=== PATIENT | female | born 1995 | race Caucasian/White ===

== ENCOUNTER 2017-08-13 09:39 | Emergency (ER) | payer OTHER ==
[2017-08-13] MEDS ORDERED: NYSTATIN/DEXAMETH/DIPHEN SUSP 120 ML PO ONE (10:09)
--- NOTE | 2017-08-13 11:09 | ER Document Report ---
ED ENT - General Chief Complaint: Sore Throat Stated Complaint: SORE THROAT,HEADACHE,LEFT EAR PAIN Time Seen by Provider: 08/13/17 09:53 Mode of Arrival: Ambulatory Information source: Patient Notes: Patient is a 21-year-old female who presents to the ER today for sore throat 3 days. Patient admits to a dry cough after the sore throat started that she thinks is just because of the irritation of the throat. Patient admits that over the past 24 hours the pain from the throat is radiating to the left ear. She denies any fever but admits to chills. She denies any runny nose, vomiting or diarrhea. TRAVEL OUTSIDE OF THE [place] IN LAST 30 DAYS: No - Related Data Allergies/Adverse Reactions: berries Allergy (Uncoded 08/13/17 09:41) Past Medical History - General Information source: Patient - Social History Smoking Status: Never Smoker Chew tobacco use (# tins/day): No Frequency of alcohol use: None Drug Abuse: None Family History: Reviewed & Not Pertinent Patient has suicidal ideation: No Patient has homicidal ideation: No Renal/ Medical History: Denies: Hx Peritoneal Dialysis Review of Systems - Review of Systems Constitutional: See HPI EENT: See HPI Cardiovascular: No symptoms reported Respiratory: See HPI Gastrointestinal: No symptoms reported Genitourinary: No symptoms reported Female Genitourinary: No symptoms reported Musculoskeletal: No symptoms reported Skin: No symptoms reported Hematologic/Lymphatic: No symptoms reported Neurological/Psychological: No symptoms reported Physical Exam - Vital signs Vitals: Temp Pulse Resp BP Pulse Ox 98.0 F 86 16 114/65 98 08/13/17 09:44 08/13/17 09:44 08/13/17 09:44 08/13/17 09:44 08/13/17 09:44 - Notes Notes: PHYSICAL EXAMINATION: General :mildly ill-appearing, but in no acute distress. HEAD: Atraumatic, normocephalic. EYES: Pupils equal round and reactive to light, extraocular movements intact, sclera anicteric, conjunctiva are normal. ENT: ear canals without erythema or foreign body, TMs pearly sparrow with good bony landmarks, nares patent, oropharynx erythematous with enlarged tonsils bilaterally without exudates. Moist mucous membranes. NECK: Normal range of motion, supple with bilateral cervical lymphadenopathy LUNGS: CTAB and equal. No wheezes rales or rhonchi. HEART: Regular rate and rhythm without murmurs EXTREMITIES: Normal range of motion, no pitting edema. No cyanosis. NEUROLOGICAL: Cranial nerves grossly intact. Normal sensory/motor exams. PSYCH: Normal mood, normal affect. SKIN: Warm, Dry, normal turgor, no rashes or lesions noted Course - Vital Signs Vital signs: Temp Pulse Resp BP Pulse Ox 98.0 F 88 17 102/59 L 98 08/13/17 11:15 08/13/17 11:15 08/13/17 11:15 08/13/17 11:15 08/13/17 11:15 Discharge - Discharge Clinical Impression: Sore throat Condition: Stable Disposition: HOME, SELF-CARE Additional Instructions: Return immediately for any new or worsening symptoms. Follow up with primary care provider, call tomorrow to make followup appointment. Prescriptions: Amoxicillin 500 mg PO BID #20 capsule Forms: Return to Work
[2017-08-13 11:15] VITALS: BP 102/59
== END 2017-08-13 11:15 | disposition home or self-care (01) ==
LOC: ER 09:39
DX: J02.9 Acute pharyngitis, unspecified (principal); R05 Cough; R68.83 Chills (without fever); J35.1 Hypertrophy of tonsils; Z91.018 Allergy to other foods
CPT/HCPCS: 99283; 87070; 87880; J3490